=== PATIENT | male | born 1960 ===

== ENCOUNTER 2021-11-05 14:23 | Outpatient (CLI) | payer OTHER ==
[~2021-11-05 14:23] MED LIST: DIOVAN160 M1; FENOGLIDE40 MG; LIPITOR20 MG; SYNTHROID75 MCG; TUSSI PRES-B L120 M1 PO; ZETIA10 MG; ZITHROMAX TRI-500 MG PO
== END 2021-11-05 14:33 | disposition home or self-care (01) ==
LOC: PPH VACUNA 14:23
PROVIDERS: ATTEND Emergency Medicine Pediatric Emergency Medicine
DX: Z23 Encounter for immunization (principal)

== ENCOUNTER 2022-04-19 14:03 | Emergency (ER) | payer OTHER ==
[~2022-04-19] VITALS: Ht 167.6 cm; Wt 93.0 kg
[2022-04-19] MEDS ORDERED: LANTUS SOL100 UNIT/1 SQ (14:16)
[2022-04-19] MEDS ORDERED: GLIMEPIRIDE2 M1 PO (14:16)
[2022-04-19] MEDS ORDERED: BENZONATATE100 MG PO (14:16)
[2022-04-19] MEDS ORDERED: AMLODIPINE BESY10 MG PO (14:17)
== END 2022-04-19 21:02 | disposition left against medical advice (07) ==
LOC: ER 14:03
DX: J18.9 Pneumonia, unspecified organism (principal); I10 Essential (primary) hypertension; Z20.822 Contact with and (suspected) exposure to COVID-19; E11.22 Type 2 diabetes mellitus with diabetic chronic kidney disease; N18.9 Chronic kidney disease, unspecified; E03.9 Hypothyroidism, unspecified; I12.9 Hypertensive chronic kidney disease with stage 1 through stage 4 chronic kidney disease, or unspecified chronic kidney disease; E11.65 Type 2 diabetes mellitus with hyperglycemia